=== PATIENT | female | born 1975 | race Caucasian/White ===

== ENCOUNTER → 2022-11-25 | Outpatient (CLI) | payer BC | END | disposition home or self-care (01) | LOC: LAB 17:34 → LAB SHORT 17:34 | DX: R30.0 Dysuria (principal) | CPT/HCPCS: 87077; 87086; 87186 ==

== ENCOUNTER → 2022-12-08 | Outpatient (CLI) | payer BC ==
[2022-12-09 15:12] LABS: HPV 16 Negative (Negative); HPV 18 Negative (Negative); HPV OTHER HR TYPES Negative (Negative)
[2022-12-09 23:07] LABS: CHLAMYDIA TRACHOMATIS, NAA Negative (Negative)
== END | disposition home or self-care (01) ==
LOC: LAB 12:25 → LAB SHORT 12:25
PROVIDERS: Family Medicine
DX: Z12.4 Encounter for screening for malignant neoplasm of cervix (principal); Z11.3 Encounter for screening for infections with a predominantly sexual mode of transmission
CPT/HCPCS: 87491; 87591; 87624; G0145

== ENCOUNTER 2023-09-07 12:21 | Day surgery (SDC) | payer BC ==
[~2023-09-07] VITALS: Wt 124.7 kg
[~2023-09-07 12:21] MED LIST: Lactated Ringer's 1,000 ML IV ONE; propofoL 40 ML IV ONE
[2023-09-07] MEDS ORDERED: ALBU90OI (12:41)
[2023-09-07] MEDS ORDERED: AZAT50 (12:41)
[2023-09-07] MEDS ORDERED: FLUT1DIS5 (12:42)
[2023-09-07] MEDS ORDERED: VITAMIN D31250 MC2 (12:42)
[2023-09-07] MEDS ORDERED: OMEP20ER (12:43)
[2023-09-07] MEDS ORDERED: LEVSOD112 (12:43)
[2023-09-07] MEDS ORDERED: OCALIVA (12:43)
[2023-09-07] MEDS ORDERED: SERT50 (12:44)
[2023-09-07] MEDS ORDERED: URSO300 (12:44)
[2023-09-07] MEDS ORDERED: Lactated Ringer's 1,000 ML IV ONE (12:53)
[2023-09-07 14:03] VITALS: BP 126/82
== END 2023-09-07 13:59 | disposition home or self-care (01) ==
LOC: ORSCSDS 12:21
PROVIDERS: Specialist
PROC: 0DBN8ZX Excision of Sigmoid Colon, Via Natural or Artificial Opening Endoscopic, Diagnostic (ICD-10-PCS; principal; 2023-09-07 13:45)
DX: Z12.11 Encounter for screening for malignant neoplasm of colon (principal); D12.5 Benign neoplasm of sigmoid colon; Z83.719 Family history of colon polyps, unspecified; G47.33 Obstructive sleep apnea (adult) (pediatric); K74.3 Primary biliary cirrhosis; E03.9 Hypothyroidism, unspecified; F32.A Depression, unspecified; E66.01 Morbid (severe) obesity due to excess calories; Z68.41 Body mass index [BMI] 40.0-44.9, adult; Z79.899 Other long term (current) drug therapy
CPT/HCPCS: 88305; J2704; J7120

== ENCOUNTER 2024-11-01 21:31 | Emergency (ER) | payer BC ==
[~2024-11-01] VITALS: Ht 170.2 cm; Wt 136.1 kg
[~2024-11-01 21:31] MED LIST changes: +ALBU90OI; +AZAT50; +FLUT1DIS5; +LEVSOD112; -Lactated Ringer's 1,000 ML IV ONE; +OCALIVA; +OMEP20ER; +SERT50; +URSO300; +VITAMIN D31250 MC2; -propofoL 40 ML IV ONE
[2024-11-01] MEDS ORDERED: NS 1,000 ML IV SCH (21:45)
[2024-11-01] MEDS ORDERED: Insulin Regular 100 Unit/ML 1ML Dose IV ONE (21:45)
[2024-11-01] MEDS ORDERED: BASAGLAR K100 UNIT/6 SC (21:48)
[2024-11-01] MEDS ORDERED: Metformin HCl500 M1 PO (21:48)
[2024-11-01] MEDS ORDERED: METF500 PO (22:34)
[2024-11-01 22:38] VITALS: BP 134/86
== END 2024-11-01 22:46 | disposition home or self-care (01) ==
LOC: ER 21:31
DX: E11.9 Type 2 diabetes mellitus without complications (principal); Z79.51 Long term (current) use of inhaled steroids; Z79.899 Other long term (current) drug therapy
CPT/HCPCS: 82947; 96360; 99284-25; J1815; J7030